=== PATIENT | female | born 1975 | race African-American/Black ===

== ENCOUNTER 2017-09-22 23:41 | Emergency (ER) | payer MEDICAID ==
[~2017-09-22] VITALS: Ht 175.3 cm; Wt 136.4 kg
[~2017-09-22 23:41] MED LIST: CLON.3 PO; FERR1TAB85 PO; HYDR25TA PO; LEVO500 PO; METO-391 PO; SULF-88 PO; VICOT PO
[2017-09-23 04:16] VITALS: BP 141/86
== END 2017-09-23 04:28 | disposition home or self-care (01) ==
LOC: EMS 23:43
DX: L08.9 Local infection of the skin and subcutaneous tissue, unspecified (principal); M79.89 Other specified soft tissue disorders; I10 Essential (primary) hypertension
CPT/HCPCS: 99283